=== PATIENT | female | born 1965 | race Caucasian/White ===

== ENCOUNTER 2017-05-25 15:57 | Inpatient (IN) ==
[2017-05-25] MEDS ORDERED: SODIUM CHLORIDE 0.9% 1,000 ML IV STA ×2 (16:30→17:39)
--- NOTE | 2017-05-25 16:57 | EKG Report ---
Stationary ECG Study [facility] ER Test Date: 05/25/2017 4:53:49 PM Pat Name: LARRY MONTEZ Department: Room: Gender: F [employer] Supervisor: Amber Marsh : 1965 Requested by: Maribell Freire Order Number: [id number] Reading MD: SAMINA MEADE Intervals [place] Rate: 62 P: 69 NH: 173 QRS: 59 QRSD: 93 T: 63 QT: 376 QTc: 381 Interpretive Statements SINUS RHYTHM at 62 bpm WNL Electronically Signed On 05-26-17 08:18:37 CDT by SAMINA EMADE [email or web address]
[2017-05-25 17:04] LABS: Basophils # 0.1 10*3/uL (0.0-0.2); Basophils % 0.8 % (0.0-0.8); Eosinophils % 0.1 % (0.00-10.9); Hematocrit 49.3 VOL% (35.7-47.0); Hemoglobin 17.5 GM/DL (12.0-16.0); Immature Granulocytes % 0.8 %; Immature Granulocytes Absolute 0.06 #; Lymphocytes # 2.9 10*3/uL (1.4-4.0); Lymphocytes % 38.3 % (21.3-54.2); Mean Corpuscular HGB Conc 35.5 GM/DL (32-36); Mean Corpuscular Hemoglobin 30 PG (27-34); Mean Corpuscular Volume 85.3 FL (87-102); Monocytes # 0.6 10*3/uL (0.11-0.8); Monocytes % 8.2 % (1.7-12.7); Neutrophils # 3.9 10*3/uL (1.4-7.4); Neutrophils % 51.8 % (38.7-73.9); Red Blood Count 5.78 MC/CUMM (3.8-5.5); Red Cell Distribution Width 14.3 % (9.3-17.3); White Blood Count 7.5 T/CUMM (4-12)
[2017-05-25 17:07] LABS: Platelet Count 91 T/CUMM (130-400)
[2017-05-25 17:17] LABS: Albumin 3.8 G/DL (3.4-5.0); Calcium 10.1 MG/DL (8.5-10.1); Osmolality,Calculated 265.7 MOS/KG (273-304); Total Protein 7.7 G/DL (6.4-8.3); Troponin I Only < 0.015 NG/ML (0.00-0.045)
[2017-05-25 17:27] LABS: Band Neutrophils 2 % (0-10); Giant Platelets Few; Hypochromasia 1+; Lymphocytes 49 % (20-55); Platelet Estimate Decreased; Segmented Neutrophils 37 % (50-85); Total Cells Counted 100
--- NOTE | 2017-05-25 18:07 | CT Report ---
CT head/brain wo con Indication: Dizziness Comparison: MRI brain 04/26/2012. Technique: CT of the brain was performed without administration of intravenous contrast. The CT examination was performed using one or more of the following dose reduction techniques: Automatic exposure control, adjustment of the mA and kV according to patient size, use of acute or iterative reconstruction techniques. Findings: There is no evidence of acute intracranial hemorrhage, mass, or infarction. Ventricles appear within normal limits. Large focus of encephalomalacia involving cortex and white matter of the right parietal lobe is demonstrated suggesting prior infarction. Compared to MRI performed April 2012, this represents evolution of infarction. The basal cisterns are patent. No significant abnormality is demonstrated to involve the posterior fossa or cerebellum. Orbits and globes demonstrate no evidence of significant pathology. The paranasal sinuses are clear. No significant abnormality is demonstrated to involve the mastoid air cells. The calvarium and overlying soft tissues demonstrate no evidence of acute pathology. Impression: 1. No CT evidence of acute intracranial pathology. 2. 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 05/25/2017 5:41 PM PROCEDURE INTERPRETED AT [facility] DEPARTMENT OF RADIOLOGY Final Report Signed by: Dr. John Cee
[2017-05-25 18:27] LABS: HIV Antigen/Antibody Result Nonreactive (Nonreactive); Hepatitis B Surface Ag Result Negative (Negative); Hepatitis C Virus Ab Result Negative (Negative)
[2017-05-25 18:43] LABS: Apearance,Urine Slightly Hazy (Clear); Bacteria,Urine Occasional /HPF (Few); Bilirubin,Urine Negative (Negative); Blood, Urine Moderate mg/dL (Negative); Glucose,Urine (UA) Negative (Negative); Hyaline Casts,Urine 20 /LPF (0-3); Ketones,Urine Negative (Negative); Mucus,Urine Occasional /LPF (Occasional); Nitrite,Urine Negative (Negative); Protein,Urine 30 MG/DL; RBC,Urine 3 /HPF (0-4); Squamous Epithelial Cell,Urine Occasional /HPF (0-10); Urine Color Amber (Yellow); Urine Specific Gravity 1.016 (1.001-1.035); WBC,Urine 5 /HPF (0-6); White Blood Cell Casts,Urine 1 /LPF (<1)
--- NOTE | 2017-05-25 18:51 | Emergency Department Note ---
Macario Burton Brittany, am scribing for, and in the presence of, Davian Owusu MD 17 :44. Francoise Burton Hans, MD, personally performed the services described in this documentation, ascribed by Cherelle Sorto in my presence, and it is both accurate and complete [id number] . Arrival - Arrival Chief Complaint: Dizziness Stated Complaint: DIZZY/FEELS LIKE PINS STICKING IN HEAD/NOT EATING ED Nursing Triage Note: PT C/O DIZZINESS WHEN STANDING/WALKING X1 WEEK. PT STATES HE FEELS LIKE HE HAS PINS PRICKING THE TOP OF HIS HEAD AND DECREASED APPETTITE. Mode of Arrival: Wheelchair Limitations: No Limitations Source: Patient, RN Notes Reviewed Time Seen by Provider: 05/25/17 17:29 - History of Present Illness HPI Narrative: Patient is a 52 y/o white female presenting to the ED with c/o vertigo which onset a week ago. Patient reports having associated blurred vision with this as well. She states that she has required assistance with ambulation due to this. Has had some nausea and episodes of loss of appetite, fecal incontinence with diarrhea type stools as well, but denies any vomiting, hematemesis, melena, hematochezia, dysuria, or hematuria. Denies hx of Renal Problems. Denies hx of Recreational Drug Use. PCP is Dr. Najera of [facility]. Patient has no other complaint/pain. Onset (ago): week(s) (1) Consistency: constant Allergies/Adverse Reactions: Allergies Allergy/AdvReac Type Severity Reaction Status Date / Time acetaminophen [From Lortab] AdvReac Hallucinati Verified 05/25/17 16:06 ng hydrocodone [From Lortab] AdvReac Hallucinati Verified 05/25/17 16:06 ng Home Medications: Home Medications Medication Instructions Recorded Confirmed Type Amlodipine Besylate/Benazepril 1 each PO DAILY 05/25/17 05/25/17 History [Lotrel 10-20 mg Capsule] Divalproex [Depakote] 500 mg PO DAILY 05/25/17 05/25/17 History Phenytoin ER Cap [Dilantin Cap] 400 mg PO DAILY 05/25/17 05/25/17 History Simvastatin [Simvastatin] 20 mg PO DAILY 05/25/17 05/25/17 History Review of System - Review of System 12 point system: reviewed and no additional remarkable complaints except as stated - Review of System Constitutional: Absent: chills, fever Eyes: Present: vision change (blurred vision) Head/Ears/Nose/Throat: Absent: nasal drainage, sore throat Respiratory: Absent: respiratory distress Cardiovascular: Absent: chest pain Gastrointestinal: Present: nausea, diarrhea. Absent: abdominal pain, vomiting, hematemesis, melena, hematochezia Genitourinary female: Absent: dysuria, frequency, urgency Musculoskeletal: Absent: arm pain, back pain, leg pain, neck pain Skin: Absent: rash Neurological: Present: vertigo. Absent: headache Psychiatric: Absent: anxiety, depression Medical,Surgical,& Family Hx - Medical History Cardio: History of: Hypertension Neurology: History of: Seizures Endocrine: History of: Dyslipidemia Other: History of: Skin Problems (SKIN CANCER) - Surgical History Abdominal Surgeries: Surgical HX of: Hernia Repair - Social History Smoking Status: Current every day smoker Frequency of Alcohol Use: None Type of Drug Use: None Exam Vital Signs: Vital Signs Temperature 97.8 F 05/25/17 17:37 Pulse Rate 77 05/25/17 18:30 Respiratory Rate 22 05/25/17 18:30 Blood Pressure 97/62 05/25/17 18:30 O2 Sat by Pulse Oximetry 95 05/25/17 18:30 - General General appearance: alert, in no apparent distress - Head Head exam: Present: atraumatic, normocephalic, normal inspection - Eye Eye exam: Present: normal appearance, PERRL, EOMI - ENT ENT exam: Present: normal exam, normal oropharynx - Neck Neck exam: Present: normal inspection, full ROM, trachea midline - Chest Chest inspection: Present: normal inspection, symmetric chest wall rise - Respiratory Respiratory exam: Present: normal lung sounds bilaterally - Cardiovascular Cardiovascular exam: Present: regular rate, normal rhythm, normal heart sounds - Abdominal Exam Abdominal exam: Present: soft, normal bowel sounds. Absent: tenderness - Extremities Exam Extremities exam: Present: normal inspection - Back Exam Back exam: Present: normal inspection - Neurological Exam Neurological exam: Present: alert, oriented X3, CN II-XII intact. Absent: motor sensory deficit - Psychiatric Psychiatric exam: Present: normal affect, normal mood - Skin Skin exam: Present: warm, dry Course Course Narrative: Patient was evaluated in the ER with head CT, lab work, chemistry, CBC, urinalysis. Patient had evidence of volume depletion with hyponatremia and headaches with orthostatic symptoms. Patient was treated with IV fluid hydration and I discussed this all with hospitalist who agreed to come and see her for admission. Results - Labs CBC & BMP: 05/25/17 16:40 05/25/17 16:40 Lab Results: I have reviewed the patients labs Labs: Laboratory Tests 05/25/17 05/25/17 05/25/17 16:40 16:40 16:40 WBC 7.5 RBC 5.78 H Hgb 17.5 H Hct 49.3 H MCV 85.3 L Plt Count 91 L MPV 13.0 H Segmented Neutrophils 37 L Sodium 131 L Potassium 4.0 Chloride 98 Carbon Dioxide 24 BUN 24 H Creatinine 1.90 H Calculated Osmolality 265.7 L AST 128 H ALT 116 H Alkaline Phosphatase 216 H Total Creatine Kinase 642 H CK-MB (CK-2) 1.2 Troponin I < 0.015 Total Protein 7.7 Globulin 3.9 H Albumin/Globulin Ratio 0.9 L Laboratory Tests 05/25/17 16:40 Lactic Acid 1.3 Laboratory Tests 05/25/17 16:40 Hep Bs Antigen Negative Hepatitis C Antibody Negative HIV 1&2 Antigen & Ab Nonreactive - Diagnostic Findings Procedure: CT: report reviewed by me (CT Head: 1. No CT evidence of acute intracranial pathology. 2. Interval evolution of prior right occipital infarction.) Disposition Clinical Impression: Orthostatic hypotension Case discussed with: patient, patient's family Disposition: Still a Patient Condition: Stable Time of Disposition: 18:51
[2017-05-25 18:52] LABS: Barbiturates Screen,Urine Negative (Negative); Benzodiazepines Screen,Urine Negative (Negative); Cannabinoid Screen,Urine Negative (Negative); Opiate Screen,Urine Negative (Negative); Phencyclidine Screen,Urine Negative (Negative)
[2017-05-25 18:57] LABS: INR 1.1; PT Patient Result 11.7 SECS; Partial Thromboplastin Time 29.2 SECS (0-40)
--- NOTE | 2017-05-25 19:03 | Ultrasound Report ---
Exam: US abdomen Indication: Thrombocytopenia. Comparison: None Technique: Using a transcutaneous probe, multiple grayscale and color Doppler images of the liver, gallbladder, spleen, pancreas, right kidney, left kidney, aorta, and inferior vena cava were captured and stored. Findings: Liver: The liver measures 21.3 cm . Liver is poorly visualized. Color and spectral flow are present in the correct direction within the interrogated portal and hepatic venous segments. Gallbladder: No significant abnormality of the gallbladder is demonstrated. The gallbladder wall measures 2.4 mm. The common bile duct measures 3 mm. Pancreas: Pancreas is not well visualized secondary to bowel gas. Spleen: The spleen demonstrates no significant abnormality. The spleen measures: Length 10.3 cm cm Width 7.8 cm cm. Right kidney: The right kidney demonstrates no evidence of acute pathology. No hydronephrosis or perinephric fluid collection is present. The right kidney measures: Length: 10 cm cm Width: 4.9 cm cm AP: 4.3 cm cm. Left kidney: Left kidney demonstrates no evidence of acute pathology. No hydronephrosis or perinephric fluid collection is present. Small round hypoechoic cortical lesion measuring 1.3 x 0.9 x 0.9 cm is present but does not clearly demonstrate through transmission or posterior wall enhancement. Differential considerations would include complex cyst as well as hypoechoic solid mass. The left kidney measures: Length: 11.9 cmcm Width 4.2 cm cm AP 5.7 cmcm. Aorta: Aorta is obscured from bowel gas. Inferior vena cava: Inferior vena cava demonstrates no significant abnormality. Color flow is present. Impression: 1.No findings are present to suggest etiology of the provided symptoms. PROCEDURE INTERPRETED AT [facility] DEPARTMENT OF RADIOLOGY Final Report Signed by: Dr. John Cee
--- NOTE | 2017-05-25 19:18 | Hospitalist History & Physical ---
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 Status: Acute Assessment and plan: hx of PCOS, with extremely high levels of testosterone Current Visit: Yes (6) Polycystic ovarian syndrome Status: Acute Current Visit: Yes (7) Elevated liver enzymes Status: Acute Assessment and plan: may be due to low blood pressure, just hepatitis panel Current Visit: Yes (8) Elevated lipase Status: Acute Assessment and plan: some nause but no pain would repeat in am Current Visit: Yes (9) Acute renal failure Status: Acute Assessment and plan: aggressive hydration, repeat bmp in am Current Visit: Yes (10) Thrombocytopenia Status: Acute Assessment and plan: PTT, PT, fibrinogen, d-dimer. Current Visit: Yes History of Present Illness Chief complaint: dizziness History of present illness: Ms. Ng is a 52 year old female presents to the ED with c/o vertigo when she trys to ambulates around the house. Has been taking lotrel for hypertension. Patient has full yip and balding with central obesity consistent with a male, but is female and has a uterus and ovaries. Patient has polycystic ovarian disease. Patient does report nausea and diarrhea but no vomiting. PCP is Dr. Najera of [facility]. Reports chills, fever and nonproductive cough. Home Medications Medication Instructions Recorded Confirmed Type Amlodipine Besylate/Benazepril 1 each PO DAILY 05/25/17 05/25/17 History [Lotrel 10-20 mg Capsule] Divalproex [Depakote] 500 mg PO DAILY 05/25/17 05/25/17 History Phenytoin ER Cap [Dilantin Cap] 400 mg PO DAILY 05/25/17 05/25/17 History Simvastatin [Simvastatin] 20 mg PO DAILY 05/25/17 05/25/17 History Allergies Allergy/AdvReac Type Severity Reaction Status Date / Time acetaminophen [From Lortab] AdvReac Hallucinati Verified 05/25/17 16:06 ng hydrocodone [From Lortab] Rick Dallasti Verified 05/25/17 16:06 ng Medical,Surgical,& Family Hx - Medical History Cardio: History of: Hypertension Neurology: History of: Cerebrovascular Accident (Affecting left sided vision), Seizures Endocrine: History of: Dyslipidemia Other: History of: Skin Problems (SKIN CANCER) - Surgical History Abdominal Surgeries: Surgical HX of: Hernia Repair Additional Surgical History: skin ca - Family History Family History: Reports;: Family Heart Disease, Family Hypertension Denies;: Family Cancer, Family Stroke - Social History Smoking Status: Current every day smoker Frequency of Alcohol Use: None Type of Drug Use: None Marital Status: Single Lives With:: Alone Functional capacity: independent ambulation - Constitutional Constitutional: Absent: fever(s), headache(s), weight gain - EENT Eyes: Absent: blurry vision, diplopia Ears: Absent: decreased hearing, ear discharge Nose, mouth and throat: Absent: headache(s), sore throat - Cardiovascular Cardiovascular: Absent: chest pain at rest, dyspnea - Respiratory Respiratory: Present: cough. Absent: dyspnea, change in phlegm color - Gastrointestinal Gastrointestinal: Present: diarrhea, nausea. Absent: abdominal pain, vomiting - Genitourinary Genitourinary: Absent: difficulty urinating, dysuria - Musculoskeletal Musculoskeletal: Absent: arthralgias, back pain - Neurological Neurological: Absent: confusion, headache(s), syncope - Psychiatric Psychiatric: Present: depression. Absent: anxiety - Endocrine Endocrine: Present: fatigue. Absent: cold intolerance, heat intolerance - Hematologic/Lymphatic Hematologic/Lymphatic: Absent: easy bleeding, easy bruising Exam - Constitutional Vitals: Period Temp Pulse Resp BP Sys/Sneed Pulse Ox Last 24 Hr 97.8 F-97.8 F 68-77 17-22 85-111/50-83 94-97 General appearance: no acute distress, over weight - Head Head exam: Present: normal inspection, normocephalic - Eye Eye exam: Present: EOMI. Absent: conjunctival injection, scleral icterus Pupils: Present: AWA, normal accommodation - ENT ENT exam: Present: normal exam, normal external ear exam - Neck Neck exam: Absent: lymphadenopathy, thyromegaly - Respiratory Respiratory exam: Present: clear to auscultation bilaterally. Absent: rhonchi, wheezes - Cardiovascular Cardiovascular exam: Present: regular rate and rhythm. Absent: systolic murmur - GI/Abdominal GI/Abdominal exam: Present: normal bowel sounds, soft. Absent: tenderness - Extremities Exam Extremities exam: Present: normal inspection, normal capillary refill - Neurological Exam Neurological exam: Present: alert, oriented X3, CN II-XII intact, reflexes normal. Absent: motor sensory deficit - Psychiatric Psychiatric exam: Present: normal affect, normal mood - Skin Skin exam: Present: normal color, warm, other (male pattern baldness with full yip and mustache, central obesity ) Results - Labs CBC & BMP: 05/25/17 16:40 05/25/17 16:40 Lab Results: I have reviewed the past 24 hour labs Labs: AST 128, ALT 116, alk phos 216, lipase 642, UA positive for infection and hyaline casts - Diagnostic Findings Procedure: Chest x-ray: report reviewed by me (Spleen 10.3 cm liver 1.3 cm, left kidney has a lesion 1.3 x 0.9 x 0.9 consistent with a complex cyst), CT: report reviewed by me (CT of head shows nothing acute prior right occipital infarct)
[2017-05-25] MEDS ORDERED: HYDROmorphone 2 MG/1 ML VIAL IV PRN (19:28)
[2017-05-25 19:46] LABS: D-Dimer 4.3 MG/L FEU
[2017-05-25 20:43] LABS: Hepatitis A Ab IgM Quant 0.13 Index; Hepatitis A Ab IgM Result Negative (Negative); Hepatitis B Core IgM Quant < 0.05 Index; Hepatitis B Core IgM Result Negative (Negative); Hepatitis B Surface Ag Quant < 0.10 Index; Hepatitis B Surface Ag Result Negative (Negative); Hepatitis C Virus Ab Quant 0.15 Index; Hepatitis C Virus Ab Result Negative (Negative)
[2017-05-25] MEDS ORDERED: ONDANSETRON 4 MG/2 ML VIAL IV PRN (21:01)
[2017-05-25] MEDS ORDERED: ZALEPLON 5 MG CAPSULE PO PRN (21:01)
[2017-05-25] MEDS: SODIUM CHLORIDE 0.9% 1,000 ML IV SCH (21:28)
[2017-05-25] MEDS: CIPROFLOXACIN 500 MG TABLET PO SCH (21:28)
[2017-05-25 21:29] LABS: Free T4 (Free Thyroxine) 1.7 NG/DL (0.76-1.46); Magnesium 2.5 MG/DL (1.8-2.4); Thyroid Stimulating Hormone 0.72 uIU/ml (0.358-3.74)
[2017-05-26] MEDS: SODIUM CHLORIDE 0.9% 1,000 ML IV SCH ×2 (04:17→11:31)
[2017-05-26 06:57] LABS: Basophils % 0.5 % (0.0-0.8); Eosinophils % 0.1 % (0.00-10.9); Hematocrit 43.8 VOL% (35.7-47.0); Hemoglobin 15.1 GM/DL (12.0-16.0); Immature Granulocytes % 0.8 %; Immature Granulocytes Absolute 0.07 #; Lymphocytes # 3.2 10*3/uL (1.4-4.0); Lymphocytes % 36.2 % (21.3-54.2); Mean Corpuscular HGB Conc 34.5 GM/DL (32-36); Mean Corpuscular Hemoglobin 30 PG (27-34); Mean Corpuscular Volume 86.7 FL (87-102); Mean Platelet Volume 13.4 FL (9.6-12.0); Monocytes # 0.8 10*3/uL (0.11-0.8); Monocytes % 9.3 % (1.7-12.7); Neutrophils # 4.6 10*3/uL (1.4-7.4); Neutrophils % 53.1 % (38.7-73.9); Platelet Count 133 T/CUMM (130-400); Red Blood Count 5.05 MC/CUMM (3.8-5.5); Red Cell Distribution Width 14.1 % (9.3-17.3); White Blood Count 8.7 T/CUMM (4-12)
[2017-05-26 07:30] LABS: Albumin 3.1 G/DL (3.4-5.0); Bilirubin,Total 1.5 MG/DL (0.2-1.0); Calcium 9.1 MG/DL (8.5-10.1); Osmolality,Calculated 273.8 MOS/KG (273-304); Potassium 4.4 MMOL/L (3.5-5.1); Total Protein 6.4 G/DL (6.4-8.3)
[2017-05-26] MEDS: CIPROFLOXACIN 500 MG TABLET PO SCH (08:10)
[2017-05-26] MEDS ORDERED: PHENYTOIN ER 100 MG CAPSULE PO SCH (09:00)
[2017-05-26] MEDS ORDERED: PANTOPRAZOLE 40 MG TABLET PO SCH (09:00)
[2017-05-26] MEDS ORDERED: DIVALPROEX 500 MG TABLET PO SCH (09:00)
--- NOTE | 2017-05-26 10:51 | Discharge Summary ---
Hospital Course - Hospital Course Hospital Course: Ms Ng presented with orthostatic hypotension that started because she was dehydrated form nausea vomiting and diarrhea over the last week without eating. She was rehydrated overnight and her creatinine came down to the normal range. Her orthostasis and dizziness resolved. She was able to eat a regular diet and wanted to go home. She was discharged to follow up with her PCP at [facility]. Her screening tests showed she has hep C antibody and I will refer her to GI. I have called her and explained it to her and the nurse will call her shortly with an appointment for GI. She will also discuss with her PCP. Her Ucx is negative so far but she will take Cipro po for presumed UTI based on UA on admission. 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 (6) Polycystic ovarian syndrome Status: Chronic (7) Elevated liver enzymes Status: Resolved (8) Acute renal failure Status: Resolved Specialty Discharge - Follow Up or Referrals Follow up with: Delbert Singletary MD [Physician] - Jerod Lindo [REFERRING DOCTOR/PRACTITIONER] - Discharge Plan - Discharge Data Disposition: Disch To Home/Self Care Condition at Discharge: Stable Discharge Diet: regular diet - Discharge Medications New Ciprofloxacin Tab [Cipro Tab] 250 mg PO BID #10 tablet Continue Divalproex [Depakote] 500 mg PO DAILY Phenytoin ER Cap [Dilantin Cap] 400 mg PO DAILY Amlodipine Besylate/Benazepril [Lotrel 10-20 mg Capsule] 1 each PO DAILY Simvastatin 20 mg PO DAILY - Follow Up or Referral - Forms/Instructions Instructions: Ciprofloxacin (By mouth), Dehydration (DC), Hyponatremia (DC) Exam - Constitutional Vitals: Period Temp Pulse Resp BP Sys/Sneed Pulse Ox Last 24 Hr 97.8 F-99 F 68-77 16-22 85-111/50-83 93-97 General appearance: no acute distress, over weight - Head Head exam: Present: normocephalic, atraumatic - Eye Eye exam: Present: EOMI. Absent: scleral icterus - Respiratory Respiratory exam: Present: clear to auscultation bilaterally - Cardiovascular Cardiovascular exam: Present: regular rate and rhythm - GI/Abdominal GI/Abdominal exam: Present: normal bowel sounds, soft. Absent: tenderness - Extremities Exam Extremities exam: Absent: edema Discharge Results Labs on day of discharge: Labs from last 24 hours 05/26/17 05/26/17 05/25/17 06:10 06:10 20:41 WBC 8.7 RBC 5.05 Hgb 15.1 D Hct 43.8 MCV 86.7 L MCH 30 MCHC 34.5 RDW 14.1 Plt Count 133 D MPV 13.4 H Neut % (Auto) 53.1 Lymph % (Auto) 36.2 [place] % (Auto) 9.3 Eos % (Auto) 0.1 Baso % (Auto) 0.5 Neut # (Auto) 4.6 Lymph # (Auto) 3.2 [place] # (Auto) 0.8 Eos # (Auto) 0.0 Baso # (Auto) 0.0 Total Counted Immature Gran % 0.8 Nucleated RBC % 0.0 Immature Gran # 0.07 Segmented Neutrophils Band Neutrophils Lymphocytes Monocytes Nucleated RBCs # 0.00 Platelet Estimate Giant Platelets Immature Plt Fraction 0.0 Hypochromasia Morphology Comment INR PT Patient/Control Mix Fibrinogen D-Dimer, Quantitative Circ Anticoag PTT Sodium 137 Potassium 4.4 Chloride 105 Carbon Dioxide 27 Anion Gap 9.4 BUN 19 H Creatinine 1.40 H GFR Calculation 51 BUN/Creatinine Ratio 13.00 Glucose 76 Calculated Osmolality 273.8 Lactic Acid Calcium 9.1 Magnesium Total Bilirubin 1.50 H AST 98 H ALT 92 H Alkaline Phosphatase 191 H Ammonia 37 H Total Creatine Kinase CK-MB (CK-2) Troponin I Total Protein 6.4 Albumin 3.1 L Globulin 3.3 Albumin/Globulin Ratio 0.9 L Lipase Free T4 TSH 3rd Generation Urine Color Urine Appearance Urine pH Ur Specific [place] Urine Protein Urine Glucose (UA) Urine Ketones Urine Blood Urine Nitrate Urine Bilirubin Urine Urobilinogen Urine Leukocytes Urine RBC Urine WBC Ur Squamous Epith Cells Urine Bacteria Hyaline Casts WBC Casts Urine Mucus Ur Culture Indicated? Urine Opiates Screen Ur Barbiturates Screen Phenytoin Ur Phencyclidine Scrn U Amphetamine/Methamph U Benzodiazepines Scrn U Cocaine Metab Screen U Cannabinoids Screen Hepatitis A IgM Ab Hep Bs Antigen Hep B Core IgM Ab Hepatitis C Antibody HIV 1&2 Antigen & Ab 05/25/17 05/25/17 05/25/17 18:24 18:24 18:06 WBC RBC Hgb Hct MCV MCH MCHC RDW Plt Count MPV Neut % (Auto) Lymph % (Auto) [place] % (Auto) Eos % (Auto) Baso % (Auto) Neut # (Auto) Lymph # (Auto) [place] # (Auto) Eos # (Auto) Baso # (Auto) Total Counted Immature Gran % Nucleated RBC % Immature Gran # Segmented Neutrophils Band Neutrophils Lymphocytes Monocytes Nucleated RBCs # Platelet Estimate Giant Platelets Immature Plt Fraction Hypochromasia Morphology Comment INR PT Patient/Control Mix Fibrinogen D-Dimer, Quantitative Circ Anticoag PTT Sodium Potassium Chloride Carbon Dioxide Anion Gap BUN Creatinine GFR Calculation BUN/Creatinine Ratio Glucose Calculated Osmolality Lactic Acid Calcium Magnesium 2.5 H Total Bilirubin AST ALT Alkaline Phosphatase Ammonia Total Creatine Kinase CK-MB (CK-2) Troponin I Total Protein Albumin Globulin Albumin/Globulin Ratio Lipase Free T4 1.70 H TSH 3rd Generation 0.720 Urine Color [place] Urine Appearance Slightly hazy Urine pH 5.0 Ur Specific [place] 1.016 Urine Protein 30 Urine Glucose (UA) Negative Urine Ketones Negative Urine Blood Moderate Urine Nitrate Negative Urine Bilirubin Negative Urine Urobilinogen 4.0 H Urine Leukocytes Negative Urine RBC 3 Urine WBC 5 Ur Squamous Epith Cells Occasional Urine Bacteria Occasional Hyaline Casts 20 WBC Casts 1 Urine Mucus Occasional Ur Culture Indicated? Not indicated Urine Opiates Screen Negative Ur Barbiturates Screen Negative Phenytoin Ur Phencyclidine Scrn Negative U Amphetamine/Methamph Negative U Benzodiazepines Scrn Negative U Cocaine Metab Screen Negative U Cannabinoids Screen Negative Hepatitis A IgM Ab Hep Bs Antigen Hep B Core IgM Ab Hepatitis C Antibody HIV 1&2 Antigen & Ab 05/25/17 05/25/17 05/25/17 18:06 18:06 18:06 WBC RBC Hgb Hct MCV MCH MCHC RDW Plt Count MPV Neut % (Auto) Lymph % (Auto) [place] % (Auto) Eos % (Auto) Baso % (Auto) Neut # (Auto) Lymph # (Auto) [place] # (Auto) Eos # (Auto) Baso # (Auto) Total Counted Immature Gran % Nucleated RBC % Immature Gran # Segmented Neutrophils Band Neutrophils Lymphocytes Monocytes Nucleated RBCs # Platelet Estimate Giant Platelets Immature Plt Fraction Hypochromasia Morphology Comment INR PT Patient/Control Mix Fibrinogen 282 D-Dimer, Quantitative 4.3 Circ Anticoag PTT Sodium Potassium Chloride Carbon Dioxide Anion Gap BUN Creatinine GFR Calculation BUN/Creatinine Ratio Glucose Calculated Osmolality Lactic Acid Calcium Magnesium Total Bilirubin AST ALT Alkaline Phosphatase Ammonia Total Creatine Kinase CK-MB (CK-2) Troponin I Total Protein Albumin Globulin Albumin/Globulin Ratio Lipase Free T4 TSH 3rd Generation Urine Color Urine Appearance Urine pH Ur Specific [place] Urine Protein Urine Glucose (UA) Urine Ketones Urine Blood Urine Nitrate Urine Bilirubin Urine Urobilinogen Urine Leukocytes Urine RBC Urine WBC Ur Squamous Epith Cells Urine Bacteria Hyaline Casts WBC Casts Urine Mucus Ur Culture Indicated? Urine Opiates Screen Ur Barbiturates Screen Phenytoin < 0.5 L Ur Phencyclidine Scrn U Amphetamine/Methamph U Benzodiazepines Scrn U Cocaine Metab Screen U Cannabinoids Screen Hepatitis A IgM Ab Negative Hep Bs Antigen Negative Hep B Core IgM Ab Negative Hepatitis C Antibody Negative HIV 1&2 Antigen & Ab 05/25/17 05/25/17 05/25/17 18:06 18:06 16:40 WBC RBC Hgb Hct MCV MCH MCHC RDW Plt Count MPV Neut % (Auto) Lymph % (Auto) [place] % (Auto) Eos % (Auto) Baso % (Auto) Neut # (Auto) Lymph # (Auto) [place] # (Auto) Eos # (Auto) Baso # (Auto) Total Counted Immature Gran % Nucleated RBC % Immature Gran # Segmented Neutrophils Band Neutrophils Lymphocytes Monocytes Nucleated RBCs # Platelet Estimate Giant Platelets Immature Plt Fraction Hypochromasia Morphology Comment INR 1.1 PT Patient/Control Mix 11.7 Fibrinogen D-Dimer, Quantitative Circ Anticoag PTT 29.2 Sodium Potassium Chloride Carbon Dioxide Anion Gap BUN Creatinine GFR Calculation BUN/Creatinine Ratio Glucose Calculated Osmolality Lactic Acid Calcium Magnesium Total Bilirubin AST ALT Alkaline Phosphatase Ammonia Total Creatine Kinase CK-MB (CK-2) Troponin I Total Protein Albumin Globulin Albumin/Globulin Ratio Lipase 642.0 H Free T4 TSH 3rd Generation Urine Color Urine Appearance Urine pH Ur Specific [place] Urine Protein Urine Glucose (UA) Urine Ketones Urine Blood Urine Nitrate Urine Bilirubin Urine Urobilinogen Urine Leukocytes Urine RBC Urine WBC Ur Squamous Epith Cells Urine Bacteria Hyaline Casts WBC Casts Urine Mucus Ur Culture Indicated? Urine Opiates Screen Ur Barbiturates Screen Phenytoin Ur Phencyclidine Scrn U Amphetamine/Methamph U Benzodiazepines Scrn U Cocaine Metab Screen U Cannabinoids Screen Hepatitis A IgM Ab Hep Bs Antigen Negative Hep B Core IgM Ab Hepatitis C Antibody Negative HIV 1&2 Antigen & Ab Nonreactive 05/25/17 05/25/17 05/25/17 16:40 16:40 16:40 WBC 7.5 RBC 5.78 H Hgb 17.5 H Hct 49.3 H MCV 85.3 L MCH 30 MCHC 35.5 RDW 14.3 Plt Count 91 L MPV 13.0 H Neut % (Auto) 51.8 Lymph % (Auto) 38.3 [place] % (Auto) 8.2 Eos % (Auto) 0.1 Baso % (Auto) 0.8 Neut # (Auto) 3.9 Lymph # (Auto) 2.9 [place] # (Auto) 0.6 Eos # (Auto) 0.0 Baso # (Auto) 0.1 Total Counted 100 Immature Gran % 0.8 Nucleated RBC % 0.0 Immature Gran # 0.06 Segmented Neutrophils 37 L Band Neutrophils 2 Lymphocytes 49 Monocytes 12 Nucleated RBCs # 0.00 Platelet Estimate Decreased Giant Platelets Few Immature Plt Fraction 0.0 Hypochromasia 1+ Morphology Comment INR PT Patient/Control Mix Fibrinogen D-Dimer, Quantitative Circ Anticoag PTT Sodium Potassium Chloride Carbon Dioxide Anion Gap BUN Creatinine GFR Calculation BUN/Creatinine Ratio Glucose Calculated Osmolality Lactic Acid 1.3 Calcium Magnesium Total Bilirubin AST ALT Alkaline Phosphatase Ammonia Total Creatine Kinase 642 H CK-MB (CK-2) 1.2 Troponin I < 0.015 Total Protein Albumin Globulin Albumin/Globulin Ratio Lipase Free T4 TSH 3rd Generation Urine Color Urine Appearance Urine pH Ur Specific [place] Urine Protein Urine Glucose (UA) Urine Ketones Urine Blood Urine Nitrate Urine Bilirubin Urine Urobilinogen Urine Leukocytes Urine RBC Urine WBC Ur Squamous Epith Cells Urine Bacteria Hyaline Casts WBC Casts Urine Mucus Ur Culture Indicated? Urine Opiates Screen Ur Barbiturates Screen Phenytoin Ur Phencyclidine Scrn U Amphetamine/Methamph U Benzodiazepines Scrn U Cocaine Metab Screen U Cannabinoids Screen Hepatitis A IgM Ab Hep Bs Antigen Hep B Core IgM Ab Hepatitis C Antibody HIV 1&2 Antigen & Ab 05/25/17 16:40 WBC RBC Hgb Hct MCV MCH MCHC RDW Plt Count MPV Neut % (Auto) Lymph % (Auto) [place] % (Auto) Eos % (Auto) Baso % (Auto) Neut # (Auto) Lymph # (Auto) [place] # (Auto) Eos # (Auto) Baso # (Auto) Total Counted Immature Gran % Nucleated RBC % Immature Gran # Segmented Neutrophils Band Neutrophils Lymphocytes Monocytes Nucleated RBCs # Platelet Estimate Giant Platelets Immature Plt Fraction Hypochromasia Morphology Comment INR PT Patient/Control Mix Fibrinogen D-Dimer, Quantitative Circ Anticoag PTT Sodium 131 L Potassium 4.0 Chloride 98 Carbon Dioxide 24 Anion Gap 13.0 BUN 24 H Creatinine 1.90 H GFR Calculation 36 BUN/Creatinine Ratio 12.00 Glucose 90 Calculated Osmolality 265.7 L Lactic Acid Calcium 10.1 Magnesium Total Bilirubin 1.00 AST 128 H ALT 116 H Alkaline Phosphatase 216 H Ammonia Total Creatine Kinase CK-MB (CK-2) Troponin I Total Protein 7.7 Albumin 3.8 Globulin 3.9 H Albumin/Globulin Ratio 0.9 L Lipase Free T4 TSH 3rd Generation Urine Color Urine Appearance Urine pH Ur Specific [place] Urine Protein Urine Glucose (UA) Urine Ketones Urine Blood Urine Nitrate Urine Bilirubin Urine Urobilinogen Urine Leukocytes Urine RBC Urine WBC Ur Squamous Epith Cells Urine Bacteria Hyaline Casts WBC Casts Urine Mucus Ur Culture Indicated? Urine Opiates Screen Ur Barbiturates Screen Phenytoin Ur Phencyclidine Scrn U Amphetamine/Methamph U Benzodiazepines Scrn U Cocaine Metab Screen U Cannabinoids Screen Hepatitis A IgM Ab Hep Bs Antigen Hep B Core IgM Ab Hepatitis C Antibody HIV 1&2 Antigen & Ab DS: Provider Date of admission: 05/25/17 18:51 Primary care physician: . No PCP Attending physician on admission: Russel He MD Consults: 05/25/17 21:11 Consult to Dietitian [CONS] Routine Reason for Dietitian: Other Discharging clinician: Radha Santoro MD
[2017-05-26 11:46] VITALS: BP 106/67
== END 2017-05-26 14:02 | disposition home or self-care (01) | DRG 469 ==
LOC: N.ED 15:57 → N.EDINP 18:51 → SUATTDRO 18:51 → N.5E 19:58
PROVIDERS: ADMIT Internal Medicine; ATTEND Internal Medicine

== ENCOUNTER 2021-03-27 09:26 | Inpatient (IN) ==
[2021-03-27 10:42] LABS: Basophils # 0.1 10*3/uL (0.0-0.2); Basophils % 0.6 % (0.0-0.8); Eosinophils % 5.7 % (0.00-10.9); Hematocrit 31.3 VOL% (35.7-47.0); Hemoglobin 9.4 GM/DL (12.0-16.0); Immature Granulocytes % 0.9 %; Immature Granulocytes Absolute 0.15 #; Lymphocytes # 2.2 10*3/uL (1.4-4.0); Lymphocytes % 12.6 % (21.3-54.2); Mean Corpuscular Volume 76.9 FL (87-102); Mean Platelet Volume 10.3 FL (9.6-12.0); Monocytes % 9.2 % (1.7-12.7); Platelet Count 311 T/CUMM (130-400); Red Blood Count 4.07 MC/CUMM (3.8-5.5); Red Cell Distribution Width 16.9 % (9.3-17.3); White Blood Count 17.2 T/CUMM (4-12)
[2021-03-27] MEDS ORDERED: SODIUM CHLORIDE 0.9% 1,000 ML IV STA ×2 (10:59→14:21)
[2021-03-27] MEDS ORDERED: methylPREDNISolone SOD SUC 125 MG/2 ML VIAL IV STA (10:59)
[2021-03-27] MEDS ORDERED: cefTRIAXone 1,000 MG in SODIUM CHLORIDE 0.9% 100 ML IV STA (10:59)
[2021-03-27] MEDS ORDERED: ALBUTEROL/IPRATROPIUM 3 ML NEB RESP TX STA (10:59)
[2021-03-27 11:10] LABS: Albumin 2.5 G/DL (3.4-5.0); Bilirubin,Total 0.6 MG/DL (0.2-1.0); Calcium 10.7 MG/DL (8.5-10.1); Osmolality,Calculated 267.7 MOS/KG (273-304); Potassium 5.6 MMOL/L (3.5-5.1); Total Protein 7.1 G/DL (6.4-8.2)
[2021-03-27] MEDS ORDERED: APIXABAN 5 MG TABLET PO STA (13:31)
[2021-03-27] MEDS ORDERED: ONDANSETRON 4 MG/2 ML VIAL IV PRN (14:19)
[2021-03-27] MEDS ORDERED: ALBUTEROL 2.5 MG/3 ML NEB RESP TX PRN (14:19)
[2021-03-27] MEDS ORDERED: SODIUM CHLORIDE 0.9% 1,250 ML IV ONE (14:27)
[2021-03-27] MEDS ORDERED: ENOXAPARIN 80 MG/0.8 ML SYRINGE SUBCUT SCH (14:30)
[2021-03-27] MEDS: PANTOPRAZOLE 40 MG VIAL IV SCH (14:55)
[2021-03-27 15:02] LABS: ABG Base Excess -4.1 MMOL/L (-2.5-2.5); ABG HCO3 20.5 MMOL/L (20-26); ABG Oxygen Saturation 65.5 % (95-100); ABG PCO2 29.1 MM HG (35-48); ABG PH 7.431 (7.35-7.45)
[2021-03-27 15:05] LABS: ABG PO2 38.8 MM HG (80-95)
[2021-03-27] MEDS: SODIUM CHLORIDE 0.9% 1,000 ML IV SCH ×2 (18:05→21:13)
[2021-03-27] MEDS ORDERED: SODIUM CHLORIDE 0.9% 500 ML IV ONE (20:40)
[2021-03-27] MEDS: guaiFENesin 200 MG/10 ML UDCUP PO PRN (21:14)
[2021-03-27] MEDS ORDERED: NOREPINEPHRINE 8 MG in SODIUM CHLORIDE 0.9% 242 ML IV PRN (23:09)
[2021-03-28] MEDS ORDERED: ENOXAPARIN 80 MG/0.8 ML SYRINGE SUBCUT SCH (02:30)
[2021-03-28 04:50] LABS: Basophils % 0.2 % (0.0-0.8); Eosinophils % 0.2 % (0.00-10.9); Hematocrit 27.3 VOL% (35.7-47.0); Hemoglobin 8.7 GM/DL (12.0-16.0); Immature Granulocytes % 1.2 %; Immature Granulocytes Absolute 0.19 #; Lymphocytes # 1.4 10*3/uL (1.4-4.0); Lymphocytes % 9.3 % (21.3-54.2); Mean Corpuscular HGB Conc 31.9 GM/DL (32-36); Mean Platelet Volume 10.1 FL (9.6-12.0); Monocytes % 8.5 % (1.7-12.7); Neutrophils % 80.6 % (38.7-73.9); Platelet Count 255 T/CUMM (130-400); Red Blood Count 3.64 MC/CUMM (3.8-5.5); White Blood Count 15.5 T/CUMM (4-12)
[2021-03-28 05:09] LABS: Albumin 1.8 G/DL (3.4-5.0); Bilirubin,Total 0.4 MG/DL (0.2-1.0); Calcium 9.5 MG/DL (8.5-10.1); Potassium 4.8 MMOL/L (3.5-5.1); Total Protein 6.1 G/DL (6.4-8.2)
[2021-03-28] MEDS: SODIUM CHLORIDE 0.9% 1,000 ML IV SCH ×2 (06:10→17:20)
[2021-03-28] MEDS: PANTOPRAZOLE 40 MG VIAL IV SCH (15:12)
[2021-03-29] MEDS: ALBUTEROL/IPRATROPIUM 3 ML NEB RESP TX SCH ×3 (01:32→07:14)
[2021-03-29] MEDS: SODIUM CHLORIDE 0.9% 1,000 ML IV SCH ×3 (02:47→19:58)
[2021-03-29] MEDS: MORPHINE 4 MG/1 ML VIAL IV PRN ×2 (04:30→22:29)
[2021-03-29] MEDS ORDERED: MORPHINE 4 MG/1 ML VIAL ONE (05:03)
[2021-03-29] MEDS ORDERED: MORPHINE 4 MG/1 ML VIAL IV PRN (05:08)
[2021-03-29] MEDS ORDERED: DILTIAZEM 50 MG/10 ML VIAL IV ONE (05:18)
[2021-03-29 06:12] LABS: Basophils # 0.1 10*3/uL (0.0-0.2); Basophils % 0.4 % (0.0-0.8); Eosinophils # 1.3 10*3/uL (0.0-0.87); Eosinophils % 9.5 % (0.00-10.9); Hemoglobin 8.3 GM/DL (12.0-16.0); Immature Granulocytes % 0.7 %; Immature Granulocytes Absolute 0.09 #; Lymphocytes % 14.7 % (21.3-54.2); Mean Corpuscular HGB Conc 29.6 GM/DL (32-36); Mean Platelet Volume 10.5 FL (9.6-12.0); Neutrophils % 66.7 % (38.7-73.9); Platelet Count 273 T/CUMM (130-400); Red Blood Count 3.59 MC/CUMM (3.8-5.5); Red Cell Distribution Width 17.2 % (9.3-17.3); White Blood Count 13.7 T/CUMM (4-12)
[2021-03-29 06:31] LABS: INR 1.1; PT Patient Result 12.2 SECS (10.5-12.0)
[2021-03-29 06:35] LABS: Calcium 9.6 MG/DL (8.5-10.1); Osmolality,Calculated 276.7 MOS/KG (273-304); Potassium 4.5 MMOL/L (3.5-5.1)
[2021-03-29] MEDS ORDERED: SODIUM CHLORIDE 0.9% 500 ML IV ONE (07:57)
[2021-03-29] MEDS: DILTIAZEM INJ 100 MG in SODIUM CHLORIDE 0.9% 100 ML IV SCH ×3 (09:33→22:02)
[2021-03-29] MEDS: METOPROLOL TARTRATE 25 MG TABLET PO SCH ×2 (09:34→20:33)
[2021-03-29] MEDS: ASCORBIC ACID 500 MG TABLET PO SCH ×2 (09:34→20:33)
[2021-03-29] MEDS ORDERED: DIAZEPAM 5 MG TABLET PO ONE (10:03)
[2021-03-29] MEDS ORDERED: ALBUTEROL/IPRATROPIUM 3 ML NEB RESP TX PRN (10:58)
[2021-03-29] MEDS ORDERED: SODIUM CHLORIDE 0.9% 1,000 ML IV ONE (13:23)
[2021-03-29] MEDS: PANTOPRAZOLE 40 MG VIAL IV SCH (16:21)
[2021-03-29 18:12] LABS: Bacteria,Urine Occasional /HPF (Few); Bilirubin,Urine Negative (Negative); Blood, Urine Small mg/dL (Negative); Glucose,Urine (UA) Negative (Negative); Hyaline Casts,Urine 4 /LPF (0-3); Ketones,Urine Negative (Negative); Mucus,Urine Occasional /LPF (Occasional); Nitrite,Urine Negative (Negative); Protein,Urine Negative; RBC,Urine 12 /HPF (0-4); Squamous Epithelial Cell,Urine Occasional /HPF (0-10); Urine Appearance CLEAR (Clear); Urine Color Yellow (Yellow); Urine Specific Gravity 1.012 (1.001-1.035); Urine Urobilinogen < 2.0 EU/DL (0.2-1.0)
[2021-03-30 04:49] LABS: Basophils # 0.1 10*3/uL (0.0-0.2); Basophils % 0.4 % (0.0-0.8); Eosinophils # 0.9 10*3/uL (0.0-0.87); Eosinophils % 6.3 % (0.00-10.9); Hematocrit 27.9 VOL% (35.7-47.0); Hemoglobin 8.1 GM/DL (12.0-16.0); Immature Granulocytes % 0.7 %; Lymphocytes # 1.8 10*3/uL (1.4-4.0); Lymphocytes % 13.3 % (21.3-54.2); Mean Platelet Volume 10.5 FL (9.6-12.0); Monocytes % 7.9 % (1.7-12.7); Neutrophils % 71.4 % (38.7-73.9); Platelet Count 288 T/CUMM (130-400); Red Blood Count 3.53 MC/CUMM (3.8-5.5); Red Cell Distribution Width 17.6 % (9.3-17.3); White Blood Count 13.7 T/CUMM (4-12)
[2021-03-30 05:10] LABS: Calcium 9.5 MG/DL (8.5-10.1); Osmolality,Calculated 277.5 MOS/KG (273-304); Potassium 4.2 MMOL/L (3.5-5.1)
[2021-03-30] MEDS: SODIUM CHLORIDE 0.9% 1,000 ML IV SCH ×3 (06:01→15:15)
[2021-03-30] MEDS: MORPHINE 4 MG/1 ML VIAL IV PRN ×2 (07:45→13:48)
[2021-03-30] MEDS: DILTIAZEM INJ 100 MG in SODIUM CHLORIDE 0.9% 100 ML IV SCH ×2 (07:46→18:31)
[2021-03-30] MEDS: ASCORBIC ACID 500 MG TABLET PO SCH ×2 (08:34→20:58)
[2021-03-30] MEDS: METOPROLOL TARTRATE 25 MG TABLET PO SCH ×2 (08:37→20:58)
[2021-03-30] MEDS: PANTOPRAZOLE 40 MG VIAL IV SCH (13:44)
[2021-03-30] MEDS ORDERED: AMIODARONE INJ 450 MG in DEXTROSE 5% 241 ML IV SCH (14:30)
[2021-03-30] MEDS: AMIODARONE INJ 450 MG in DEXTROSE 5% 241 ML IV SCH (21:13)
[2021-03-31] MEDS: SODIUM CHLORIDE 0.9% 1,000 ML IV SCH ×3 (01:00→20:23)
[2021-03-31 06:32] LABS: Basophils # 0.1 10*3/uL (0.0-0.2); Basophils % 0.3 % (0.0-0.8); Eosinophils # 0.1 10*3/uL (0.0-0.87); Eosinophils % 0.5 % (0.00-10.9); Hematocrit 30.8 VOL% (35.7-47.0); Hemoglobin 9.3 GM/DL (12.0-16.0); Immature Granulocytes Absolute 0.19 #; Lymphocytes # 1.6 10*3/uL (1.4-4.0); Lymphocytes % 8.3 % (21.3-54.2); Mean Corpuscular HGB Conc 30.2 GM/DL (32-36); Mean Corpuscular Volume 77.4 FL (87-102); Mean Platelet Volume 10.9 FL (9.6-12.0); NRBC # 0.02 10*3/uL; Neutrophils % 82.9 % (38.7-73.9); Platelet Count 268 T/CUMM (130-400); Red Blood Count 3.98 MC/CUMM (3.8-5.5); Red Cell Distribution Width 18.1 % (9.3-17.3); White Blood Count 18.8 T/CUMM (4-12)
[2021-03-31 06:55] LABS: Calcium 9.6 MG/DL (8.5-10.1); Osmolality,Calculated 281.4 MOS/KG (273-304); Potassium 5.3 MMOL/L (3.5-5.1); Thyroid Stimulating Hormone 3.39 uIU/ml (0.358-3.74)
[2021-03-31] MEDS: METOPROLOL TARTRATE 25 MG TABLET PO SCH ×2 (10:04→20:23)
[2021-03-31] MEDS: AMIODARONE 200 MG TABLET PO SCH ×2 (10:04→20:23)
[2021-03-31] MEDS: ASCORBIC ACID 500 MG TABLET PO SCH ×2 (10:04→20:23)
[2021-03-31] MEDS: AMIODARONE INJ 450 MG in DEXTROSE 5% 241 ML IV SCH (13:35)
[2021-03-31] MEDS: PANTOPRAZOLE 40 MG VIAL IV SCH (14:59)
[2021-03-31] MEDS: CYCLOBENZAPRINE 10 MG TABLET PO SCH ×2 (15:00→20:23)
[2021-03-31] MEDS: DILTIAZEM INJ 100 MG in SODIUM CHLORIDE 0.9% 100 ML IV SCH (19:31)
[2021-03-31] MEDS: MORPHINE 4 MG/1 ML VIAL IV PRN (21:33)
[2021-04-01] MEDS: SODIUM CHLORIDE 0.9% 1,000 ML IV SCH ×3 (06:25→20:23)
[2021-04-01] MEDS: CYCLOBENZAPRINE 10 MG TABLET PO SCH ×3 (08:40→20:19)
[2021-04-01] MEDS: ASCORBIC ACID 500 MG TABLET PO SCH ×2 (08:41→20:18)
[2021-04-01] MEDS: AMIODARONE 200 MG TABLET PO SCH ×2 (08:41→20:18)
[2021-04-01] MEDS: METOPROLOL TARTRATE 25 MG TABLET PO SCH ×2 (08:41→20:18)
[2021-04-01] MEDS: PANTOPRAZOLE 40 MG VIAL IV SCH (15:24)
[2021-04-01] MEDS: MORPHINE 4 MG/1 ML VIAL IV PRN (20:20)
[2021-04-01] MEDS: VERAPAMIL 80 MG TABLET PO SCH (23:41)
[2021-04-02] MEDS: SODIUM CHLORIDE 0.9% 1,000 ML IV SCH ×2 (06:31→14:07)
[2021-04-02] MEDS: METOPROLOL TARTRATE 25 MG TABLET PO SCH ×2 (09:36→20:51)
[2021-04-02] MEDS: CYCLOBENZAPRINE 10 MG TABLET PO SCH ×3 (09:36→20:50)
[2021-04-02] MEDS: AMIODARONE 200 MG TABLET PO SCH ×2 (09:36→20:51)
[2021-04-02] MEDS: ASCORBIC ACID 500 MG TABLET PO SCH ×2 (09:36→20:51)
[2021-04-02] MEDS: VERAPAMIL 80 MG TABLET PO SCH ×4 (09:39→20:51)
[2021-04-02] MEDS: PANTOPRAZOLE 40 MG VIAL IV SCH (14:06)
[2021-04-02] MEDS ORDERED: SODIUM ZIRCONIUM CYCLOSILICATE 10 GM PACK PO SCH (17:00)
[2021-04-02] MEDS: MORPHINE 4 MG/1 ML VIAL IV PRN (18:04)
[2021-04-03] MEDS: SODIUM CHLORIDE 0.9% 1,000 ML IV SCH ×2 (02:14→11:29)
[2021-04-03 05:10] LABS: Basophils # 0.1 10*3/uL (0.0-0.2); Basophils % 0.4 % (0.0-0.8); Eosinophils # 1.4 10*3/uL (0.0-0.87); Eosinophils % 8.6 % (0.00-10.9); Hemoglobin 9.1 GM/DL (12.0-16.0); Immature Granulocytes % 1.8 %; Lymphocytes # 1.9 10*3/uL (1.4-4.0); Lymphocytes % 11.5 % (21.3-54.2); Mean Corpuscular HGB Conc 29.4 GM/DL (32-36); Mean Corpuscular Volume 81.4 FL (87-102); Mean Platelet Volume 10.5 FL (9.6-12.0); Monocytes % 7.5 % (1.7-12.7); NRBC # 0.09 10*3/uL; Neutrophils % 70.2 % (38.7-73.9); Platelet Count 206 T/CUMM (130-400); Red Blood Count 3.81 MC/CUMM (3.8-5.5); Red Cell Distribution Width 21.2 % (9.3-17.3); White Blood Count 16.2 T/CUMM (4-12)
[2021-04-03 05:39] LABS: Calcium 9.2 MG/DL (8.5-10.1); Osmolality,Calculated 282.1 MOS/KG (273-304); Potassium 3.7 MMOL/L (3.5-5.1)
[2021-04-03] MEDS: METOPROLOL TARTRATE 25 MG TABLET PO SCH ×2 (08:25→21:03)
[2021-04-03] MEDS: CYCLOBENZAPRINE 10 MG TABLET PO SCH ×3 (08:25→21:02)
[2021-04-03] MEDS: ASCORBIC ACID 500 MG TABLET PO SCH ×2 (08:25→21:02)
[2021-04-03] MEDS: VERAPAMIL 80 MG TABLET PO SCH ×4 (08:25→22:17)
[2021-04-03] MEDS: AMIODARONE 200 MG TABLET PO SCH ×2 (08:25→21:02)
[2021-04-03] MEDS: RACEPINEPHRINE 0.5 ML NEB RESP TX SCH ×2 (14:09→19:12)
[2021-04-03] MEDS: PANTOPRAZOLE 40 MG VIAL IV SCH (15:09)
[2021-04-03] MEDS: MORPHINE 4 MG/1 ML VIAL IV PRN ×2 (15:09→21:08)
[2021-04-04] MEDS: SODIUM CHLORIDE 0.9% 1,000 ML IV SCH ×3 (00:30→21:32)
[2021-04-04] MEDS: RACEPINEPHRINE 0.5 ML NEB RESP TX SCH ×4 (01:55→19:10)
[2021-04-04 06:14] LABS: Basophils # 0.1 10*3/uL (0.0-0.2); Basophils % 0.4 % (0.0-0.8); Eosinophils # 1.2 10*3/uL (0.0-0.87); Eosinophils % 8.4 % (0.00-10.9); Hemoglobin 9.4 GM/DL (12.0-16.0); Immature Granulocytes % 1.3 %; Immature Granulocytes Absolute 0.18 #; Lymphocytes # 1.5 10*3/uL (1.4-4.0); Lymphocytes % 10.7 % (21.3-54.2); Mean Corpuscular HGB Conc 30.3 GM/DL (32-36); Mean Corpuscular Volume 80.7 FL (87-102); Mean Platelet Volume 10.5 FL (9.6-12.0); Monocytes % 7.4 % (1.7-12.7); NRBC # 0.04 10*3/uL; Neutrophils % 71.8 % (38.7-73.9); Platelet Count 201 T/CUMM (130-400); Red Blood Count 3.84 MC/CUMM (3.8-5.5); Red Cell Distribution Width 22.2 % (9.3-17.3); White Blood Count 14.1 T/CUMM (4-12)
[2021-04-04 06:45] LABS: Calcium 9.7 MG/DL (8.5-10.1); Osmolality,Calculated 282.8 MOS/KG (273-304); Potassium 3.3 MMOL/L (3.5-5.1)
[2021-04-04] MEDS ORDERED: FAMOTIDINE 20 MG TABLET PO ONE (09:00)
[2021-04-04] MEDS ORDERED: GRANISETRON 1 MG/1 ML VIAL IV SCH (09:00)
[2021-04-04] MEDS ORDERED: PACLITAXEL IV ONE (09:00)
[2021-04-04] MEDS ORDERED: diphenhydrAMINE 50 MG/1 ML VIAL IV ONE (09:00)
[2021-04-04] MEDS ORDERED: CARBOplatin 550 MG in SODIUM CHLORIDE 0.9% 250 ML IV ONE (09:00)
[2021-04-04] MEDS ORDERED: SODIUM CHLORIDE 0.9% IV ONE (09:00)
[2021-04-04] MEDS ORDERED: DEXAMETHASONE INJ 20 MG in SODIUM CHLORIDE 0.9% 50 ML IV ONE (09:00)
[2021-04-04] MEDS: CYCLOBENZAPRINE 10 MG TABLET PO SCH ×3 (09:50→21:28)
[2021-04-04] MEDS: ASCORBIC ACID 500 MG TABLET PO SCH ×2 (09:51→21:30)
[2021-04-04] MEDS: AMIODARONE 200 MG TABLET PO SCH ×2 (09:51→21:31)
[2021-04-04] MEDS: VERAPAMIL 80 MG TABLET PO SCH ×4 (09:51→21:35)
[2021-04-04] MEDS: METOPROLOL TARTRATE 25 MG TABLET PO SCH ×2 (10:02→21:31)
[2021-04-04] MEDS: MORPHINE 4 MG/1 ML VIAL IV PRN ×2 (11:38→19:45)
[2021-04-04] MEDS: PANTOPRAZOLE 40 MG VIAL IV SCH (14:20)
[2021-04-04] MEDS: ALPRAZolam 0.25 MG TABLET PO PRN ×2 (14:20→21:30)
[2021-04-04] MEDS ORDERED: POTASSIUM CHLORIDE 20 MEQ/15 ML UDCUP PO ONE (17:32)
[2021-04-05] MEDS: RACEPINEPHRINE 0.5 ML NEB RESP TX SCH ×4 (00:21→20:30)
[2021-04-05] MEDS: MORPHINE 4 MG/1 ML VIAL IV PRN ×2 (04:06→22:13)
[2021-04-05 05:20] LABS: Basophils % 0.2 % (0.0-0.8); Hemoglobin 9.1 GM/DL (12.0-16.0); Immature Granulocytes % 2.2 %; Immature Granulocytes Absolute 0.26 #; Lymphocytes # 0.6 10*3/uL (1.4-4.0); Lymphocytes % 5.2 % (21.3-54.2); Mean Corpuscular HGB Conc 30.3 GM/DL (32-36); Mean Corpuscular Volume 79.6 FL (87-102); Mean Platelet Volume 10.9 FL (9.6-12.0); NRBC # 0.03 10*3/uL; Neutrophils % 90.4 % (38.7-73.9); Platelet Count 179 T/CUMM (130-400); Red Blood Count 3.77 MC/CUMM (3.8-5.5); Red Cell Distribution Width 22.9 % (9.3-17.3); White Blood Count 11.9 T/CUMM (4-12)
[2021-04-05 05:41] LABS: Potassium 3.6 MMOL/L (3.5-5.1)
[2021-04-05] MEDS: CYCLOBENZAPRINE 10 MG TABLET PO SCH ×3 (08:40→21:07)
[2021-04-05] MEDS: AMIODARONE 200 MG TABLET PO SCH ×2 (08:40→21:07)
[2021-04-05] MEDS: ASCORBIC ACID 500 MG TABLET PO SCH ×2 (08:40→21:07)
[2021-04-05] MEDS: METOPROLOL TARTRATE 25 MG TABLET PO SCH ×2 (08:42→21:07)
[2021-04-05] MEDS: VERAPAMIL 80 MG TABLET PO SCH ×4 (08:48→21:07)
[2021-04-05] MEDS: SODIUM CHLORIDE 0.9% 1,000 ML IV SCH ×2 (10:23→10:54)
[2021-04-05] MEDS: MEROPENEM 500 MG in SODIUM CHLORIDE 0.9% 100 ML IV SCH ×3 (10:54→21:08)
[2021-04-05] MEDS: PANTOPRAZOLE 40 MG VIAL IV SCH (15:18)
[2021-04-06] MEDS: RACEPINEPHRINE 0.5 ML NEB RESP TX SCH ×4 (01:45→20:05)
[2021-04-06] MEDS: MEROPENEM 500 MG in SODIUM CHLORIDE 0.9% 100 ML IV SCH ×4 (03:27→21:30)
[2021-04-06 04:30] LABS: Basophils % 0.1 % (0.0-0.8); Eosinophils # 0.2 10*3/uL (0.0-0.87); Eosinophils % 1.2 % (0.00-10.9); Hematocrit 33.2 VOL% (35.7-47.0); Hemoglobin 9.9 GM/DL (12.0-16.0); Immature Granulocytes % 1.2 %; Immature Granulocytes Absolute 0.18 #; Lymphocytes # 0.9 10*3/uL (1.4-4.0); Lymphocytes % 6.4 % (21.3-54.2); Mean Corpuscular HGB Conc 29.8 GM/DL (32-36); Mean Corpuscular Volume 80.8 FL (87-102); Mean Platelet Volume 10.9 FL (9.6-12.0); Monocytes % 2.7 % (1.7-12.7); Neutrophils % 88.4 % (38.7-73.9); Platelet Count 152 T/CUMM (130-400); Red Blood Count 4.11 MC/CUMM (3.8-5.5); White Blood Count 14.5 T/CUMM (4-12)
[2021-04-06 04:46] LABS: Calcium 9.3 MG/DL (8.5-10.1); Osmolality,Calculated 286.8 MOS/KG (273-304); Potassium 3.7 MMOL/L (3.5-5.1)
[2021-04-06 05:30] LABS: Hypochromasia 1+; Microcytosis 2+; Polychromasia Slight
[2021-04-06 05:31] LABS: Platelet Estimate Adequate
[2021-04-06] MEDS: guaiFENesin 200 MG/10 ML UDCUP PO PRN (06:15)
[2021-04-06] MEDS: SODIUM CHLORIDE 0.9% 1,000 ML IV SCH ×2 (06:29→21:31)
[2021-04-06] MEDS ORDERED: FUROSEMIDE 40 MG/4 ML VIAL IV ONE (08:35)
[2021-04-06] MEDS: METOPROLOL TARTRATE 25 MG TABLET PO SCH ×2 (09:31→21:29)
[2021-04-06] MEDS: ASCORBIC ACID 500 MG TABLET PO SCH ×2 (09:31→21:29)
[2021-04-06] MEDS: AMIODARONE 200 MG TABLET PO SCH ×2 (09:31→21:29)
[2021-04-06] MEDS: CYCLOBENZAPRINE 10 MG TABLET PO SCH ×3 (09:32→21:29)
[2021-04-06] MEDS: VERAPAMIL 80 MG TABLET PO SCH ×4 (09:32→21:31)
[2021-04-06] MEDS ORDERED: BENZONATATE 100 MG CAPSULE PO PRN (11:33)
[2021-04-06] MEDS: PANTOPRAZOLE 40 MG VIAL IV SCH (15:32)
[2021-04-07] MEDS: ALPRAZolam 0.25 MG TABLET PO PRN (00:24)
[2021-04-07] MEDS: RACEPINEPHRINE 0.5 ML NEB RESP TX SCH ×5 (00:30→23:44)
[2021-04-07] MEDS: MEROPENEM 500 MG in SODIUM CHLORIDE 0.9% 100 ML IV SCH ×4 (03:31→22:35)
[2021-04-07 05:30] LABS: Basophils % 0.1 % (0.0-0.8); Eosinophils # 0.5 10*3/uL (0.0-0.87); Eosinophils % 3.7 % (0.00-10.9); Hematocrit 34.4 VOL% (35.7-47.0); Hemoglobin 10.2 GM/DL (12.0-16.0); Immature Granulocytes Absolute 0.13 #; Lymphocytes # 1.1 10*3/uL (1.4-4.0); Lymphocytes % 8.5 % (21.3-54.2); Mean Corpuscular HGB Conc 29.7 GM/DL (32-36); Mean Corpuscular Volume 80.8 FL (87-102); Mean Platelet Volume 11.4 FL (9.6-12.0); Monocytes % 0.9 % (1.7-12.7); Neutrophils % 85.8 % (38.7-73.9); Platelet Count 126 T/CUMM (130-400); Red Blood Count 4.26 MC/CUMM (3.8-5.5); Red Cell Distribution Width 24.1 % (9.3-17.3); White Blood Count 12.9 T/CUMM (4-12)
[2021-04-07 05:51] LABS: Calcium 9.1 MG/DL (8.5-10.1); Osmolality,Calculated 276.4 MOS/KG (273-304); Potassium 3.4 MMOL/L (3.5-5.1)
[2021-04-07 06:02] LABS: Hypochromasia 1+; Microcytosis 2+; Platelet Estimate Adequate
[2021-04-07] MEDS: METOPROLOL TARTRATE 25 MG TABLET PO SCH ×2 (09:29→22:33)
[2021-04-07] MEDS: ASCORBIC ACID 500 MG TABLET PO SCH ×2 (09:29→22:33)
[2021-04-07] MEDS: CYCLOBENZAPRINE 10 MG TABLET PO SCH ×3 (09:29→22:33)
[2021-04-07] MEDS: AMIODARONE 200 MG TABLET PO SCH ×2 (09:30→22:33)
[2021-04-07] MEDS: VERAPAMIL 80 MG TABLET PO SCH ×4 (09:31→22:32)
[2021-04-07] MEDS ORDERED: FUROSEMIDE 40 MG/4 ML VIAL IV ONE (09:47)
[2021-04-07] MEDS: SODIUM CHLORIDE 0.9% 1,000 ML IV SCH (10:26)
[2021-04-07] MEDS: MORPHINE 4 MG/1 ML VIAL IV PRN (12:20)
[2021-04-07] MEDS: PANTOPRAZOLE 40 MG VIAL IV SCH (15:00)
[2021-04-08] MEDS: MEROPENEM 500 MG in SODIUM CHLORIDE 0.9% 100 ML IV SCH ×4 (02:35→21:44)
[2021-04-08 05:00] LABS: Basophils % 0.3 % (0.0-0.8); Eosinophils # 0.5 10*3/uL (0.0-0.87); Eosinophils % 4.6 % (0.00-10.9); Hematocrit 32.1 VOL% (35.7-47.0); Hemoglobin 9.6 GM/DL (12.0-16.0); Immature Granulocytes % 0.9 %; Lymphocytes # 0.9 10*3/uL (1.4-4.0); Mean Corpuscular HGB Conc 29.9 GM/DL (32-36); Mean Corpuscular Volume 81.5 FL (87-102); Monocytes % 0.7 % (1.7-12.7); Neutrophils % 85.5 % (38.7-73.9); Red Blood Count 3.94 MC/CUMM (3.8-5.5); Red Cell Distribution Width 23.8 % (9.3-17.3); White Blood Count 11.4 T/CUMM (4-12)
[2021-04-08 05:07] LABS: Platelet Count 95 T/CUMM (130-400)
[2021-04-08] MEDS: RACEPINEPHRINE 0.5 ML NEB RESP TX SCH ×4 (05:08→19:04)
[2021-04-08 05:15] LABS: Calcium 8.9 MG/DL (8.5-10.1); Osmolality,Calculated 278.3 MOS/KG (273-304); Potassium 3.5 MMOL/L (3.5-5.1)
[2021-04-08 05:35] LABS: Band Neutrophils 1 % (0-10); Eosinophils 6 % (0-10); Lymphocytes 5 % (20-55); Metamyelocytes 4 %; Segmented Neutrophils 84 % (50-85); Total Cells Counted 100
[2021-04-08 05:36] LABS: Hypochromasia 1+; Microcytosis 1+; Ovalocytes Slight; Platelet Estimate Decreased
[2021-04-08] MEDS: MORPHINE 4 MG/1 ML VIAL IV PRN ×3 (08:36→22:29)
[2021-04-08] MEDS: VERAPAMIL 80 MG TABLET PO SCH ×4 (08:37→21:49)
[2021-04-08] MEDS: METOPROLOL TARTRATE 25 MG TABLET PO SCH ×2 (08:37→21:43)
[2021-04-08] MEDS: ASCORBIC ACID 500 MG TABLET PO SCH ×2 (08:38→21:43)
[2021-04-08] MEDS: AMIODARONE 200 MG TABLET PO SCH (08:38)
[2021-04-08] MEDS: CYCLOBENZAPRINE 10 MG TABLET PO SCH ×3 (08:38→21:42)
[2021-04-08] MEDS ORDERED: POTASSIUM CHLORIDE 20 MEQ TABLET PO ONE (09:08)
[2021-04-08] MEDS ORDERED: ASPIRIN EC 81 MG TABLET PO SCH (09:09)
[2021-04-08] MEDS: PANTOPRAZOLE 40 MG VIAL IV SCH (13:47)
[2021-04-08] MEDS: ALPRAZolam 0.25 MG TABLET PO PRN (21:42)
[2021-04-09] MEDS: RACEPINEPHRINE 0.5 ML NEB RESP TX SCH ×4 (01:00→19:12)
[2021-04-09] MEDS: MEROPENEM 500 MG in SODIUM CHLORIDE 0.9% 100 ML IV SCH ×4 (03:13→21:36)
[2021-04-09 06:49] LABS: Basophils % 0.5 % (0.0-0.8); Eosinophils # 0.4 10*3/uL (0.0-0.87); Eosinophils % 6.9 % (0.00-10.9); Hematocrit 31.2 VOL% (35.7-47.0); Hemoglobin 9.1 GM/DL (12.0-16.0); Immature Granulocytes % 2.9 %; Immature Granulocytes Absolute 0.18 #; Lymphocytes # 1.1 10*3/uL (1.4-4.0); Lymphocytes % 17.6 % (21.3-54.2); Mean Corpuscular HGB Conc 29.2 GM/DL (32-36); Mean Corpuscular Volume 81.9 FL (87-102); Mean Platelet Volume 11.7 FL (9.6-12.0); Neutrophils % 71.1 % (38.7-73.9); Platelet Count 70 T/CUMM (130-400); Red Blood Count 3.81 MC/CUMM (3.8-5.5); Red Cell Distribution Width 23.7 % (9.3-17.3); White Blood Count 6.3 T/CUMM (4-12)
[2021-04-09 07:13] LABS: Eosinophils 5 % (0-10); Lymphocytes 19 % (20-55); Segmented Neutrophils 75 % (50-85); Total Cells Counted 100
[2021-04-09 07:14] LABS: Platelet Estimate Decreased
[2021-04-09 07:22] LABS: Potassium 3.6 MMOL/L (3.5-5.1)
[2021-04-09] MEDS: CYCLOBENZAPRINE 10 MG TABLET PO SCH ×3 (10:19→21:35)
[2021-04-09] MEDS: METOPROLOL SUCCINATE XL 25 MG TABLET PO SCH (10:20)
[2021-04-09] MEDS: ASCORBIC ACID 500 MG TABLET PO SCH ×2 (10:20→21:35)
[2021-04-09] MEDS: VERAPAMIL SR 180 MG TABLET PO SCH (10:21)
[2021-04-09] MEDS: AMIODARONE 200 MG TABLET PO SCH (10:21)
[2021-04-09] MEDS: MORPHINE 4 MG/1 ML VIAL IV PRN ×2 (12:38→17:23)
[2021-04-09] MEDS: PANTOPRAZOLE 40 MG VIAL IV SCH (15:18)
[2021-04-09] MEDS: ALPRAZolam 0.25 MG TABLET PO PRN (18:12)
[2021-04-09] MEDS ORDERED: MORPHINE 4 MG/1 ML VIAL IV ONE (19:26)
[2021-04-10] MEDS: RACEPINEPHRINE 0.5 ML NEB RESP TX SCH ×2 (00:28→07:44)
[2021-04-10] MEDS: MORPHINE 4 MG/1 ML VIAL IV PRN (01:31)
[2021-04-10] MEDS: MEROPENEM 500 MG in SODIUM CHLORIDE 0.9% 100 ML IV SCH ×2 (03:38→08:52)
[2021-04-10 04:47] LABS: Basophils % 1.1 % (0.0-0.8); Eosinophils # 0.3 10*3/uL (0.0-0.87); Eosinophils % 12.4 % (0.00-10.9); Hematocrit 28.1 VOL% (35.7-47.0); Hemoglobin 8.5 GM/DL (12.0-16.0); Immature Granulocytes % 10.2 %; Immature Granulocytes Absolute 0.27 #; Lymphocytes # 0.8 10*3/uL (1.4-4.0); Lymphocytes % 28.9 % (21.3-54.2); Mean Corpuscular HGB Conc 30.2 GM/DL (32-36); Mean Corpuscular Volume 80.5 FL (87-102); Monocytes % 1.9 % (1.7-12.7); Neutrophils % 45.5 % (38.7-73.9); Platelet Count 60 T/CUMM (130-400); Red Blood Count 3.49 MC/CUMM (3.8-5.5); Red Cell Distribution Width 23.2 % (9.3-17.3); White Blood Count 2.7 T/CUMM (4-12)
[2021-04-10 05:00] LABS: Calcium 8.1 MG/DL (8.5-10.1); Osmolality,Calculated 283.8 MOS/KG (273-304); Potassium 2.8 MMOL/L (3.5-5.1)
[2021-04-10 05:20] LABS: Atypical Lymphocytes Few; Band Neutrophils 1 % (0-10); Eosinophils 15 % (0-10); Hypochromasia 1+; Lymphocytes 31 % (20-55); Metamyelocytes 1 %; Microcytosis 1+; Ovalocytes Slight; Segmented Neutrophils 50 % (50-85); Total Cells Counted 100
[2021-04-10 05:21] LABS: Platelet Estimate Decreased
[2021-04-10] MEDS ORDERED: POTASSIUM CHLORIDE RIDER 10 MEQ/100 ML PREMIX IV PRN ×2 (07:35→08:27)
[2021-04-10] MEDS ORDERED: POTASSIUM CHLORIDE 20 MEQ TABLET PO PRN (08:27)
[2021-04-10] MEDS: METOPROLOL SUCCINATE XL 25 MG TABLET PO SCH (08:51)
[2021-04-10] MEDS: VERAPAMIL SR 180 MG TABLET PO SCH (08:51)
[2021-04-10] MEDS: ASCORBIC ACID 500 MG TABLET PO SCH (08:51)
[2021-04-10] MEDS: AMIODARONE 200 MG TABLET PO SCH (08:51)
[2021-04-10] MEDS: CYCLOBENZAPRINE 10 MG TABLET PO SCH (08:51)
[2021-04-10] MEDS ORDERED: AMIODARONE 200 MG TABLET PO ONE (10:27)
[2021-04-10 11:50] VITALS: BP 98/59
[2021-04-10] MEDS ORDERED: AMIODARONE 200 MG TABLET PO SCH (21:00)
== END 2021-04-10 15:45 | disposition hospice, home (50) | DRG 136 ==
LOC: EDSEX → N.ED 09:26 → N.EDINP 14:19 → SUATTDRO 14:19 → N.CC 16:56 → N.4E 03-28 13:23 → N.TELEN 03-29 09:10 → N.4E 04-03 18:45
PROVIDERS: ADMIT Internal Medicine; ATTEND Internal Medicine